=== PATIENT | female | born 1990 | race Two or more races ===

== ENCOUNTER 2017-11-16 14:26 | Emergency (ER) | payer BC, MEDICAID ==
[~2017-11-16] VITALS: Ht 152.4 cm; Wt 90.7 kg
[2017-11-16] MEDS ORDERED: TDAP DIPH,PERTUSS,TET VAC/PF 0.5 ML DISP.SYRIN IM ONE ×2 (15:00→15:05)
--- NOTE | 2017-11-16 16:21 | NUR ---
MSE COMPLETED, ACI/RX X1 GIVEN, LACERATION SITE WAS CLEANED AND DREASED WITH NON-ADHIRING DRESSING, COLLI SPLINT PLACED TO LEFT HAND/WRIST.
[2017-11-16 16:22] VITALS: BP 120/78
== END 2017-11-16 16:24 | disposition home or self-care (01) ==
LOC: ER 14:31
DX: S61.412A Laceration without foreign body of left hand, initial encounter (principal); W25.XXXA Contact with sharp glass, initial encounter; Y93.89 Activity, other specified; Y92.89 Other specified places as the place of occurrence of the external cause; Y99.8 Other external cause status
CPT/HCPCS: 73130; 90715; A4217; A4663; J3490

== ENCOUNTER 2017-11-25 11:25 | Emergency (ER) | payer BC ==
[~2017-11-25] VITALS: Ht 154.9 cm; Wt 77.1 kg
--- NOTE | 2017-11-25 11:32 | NUR ---
at bedside to see and examine patient.
--- NOTE | 2017-11-25 11:36 | NUR ---
Stitches to left hand removed as ordered. dcd instructions provided and pt. verbalized understanding.
== END 2017-11-25 11:44 | disposition home or self-care (01) ==
LOC: ER 11:25
DX: S61.412D Laceration without foreign body of left hand, subsequent encounter (principal); Z48.02 Encounter for removal of sutures; X58.XXXD Exposure to other specified factors, subsequent encounter
CPT/HCPCS: A4663

== ENCOUNTER 2019-02-01 04:02 | Emergency (ER) | payer BC, MEDICAID, OTHER ==
[~2019-02-01] VITALS: Ht 154.9 cm; Wt 108.9 kg
[2019-02-01] MEDS ORDERED: LITH300T3 PO (04:08)
[2019-02-01] MEDS ORDERED: ARIP15TA3 PO (04:08)
[2019-02-01] MEDS ORDERED: KETOROLAC TROMETHAMINE 15 MG INJ IVP ONE (04:30)
[2019-02-01] MEDS ORDERED: HYDROMORPHONE 2 MG/1 ML DISP.SYRIN ONE (04:30)
[2019-02-01] MEDS ORDERED: ONDANSETRON 4 MG/2 ML VIAL ONE (04:30)
[2019-02-01] MEDS ORDERED: ONDANSETRON 4 MG/2 ML VIAL IV ONE (04:30)
[2019-02-01] MEDS ORDERED: HYDROMORPHONE 1 MG/1 ML DISP.SYRIN IV ONE (04:30)
[2019-02-01] MEDS ORDERED: KETOROLAC TROMETHAMINE 30 MG INJ ONE (04:37)
--- NOTE | 2019-02-01 04:42 | NUR ---
Pt is resting in bed. Labs drawn, sent to lab. Meds administered. Pending ultrasound. Pt's partner at bedside. No acute distress noted.
[2019-02-01 04:53] LABS: BASOPHILS # (AUTO) 0.1 K/uL (0.0-8.0); BASOPHILS % (AUTO) 0.7 % (0.0-2.0); EOSINOPHILS # (AUTO) 0.2 K/uL (0.0-0.7); EOSINOPHILS % (AUTO) 1.5 % (0.0-7.0); HEMATOCRIT 44.5 % (31.2-41.9); HEMOGLOBIN 14.9 g/dL (10.9-14.3); LYMPHOCYTES # (AUTO) 4.8 K/uL (20.0-40.0); LYMPHOCYTES % (AUTO) 33.9 % (20.5-51.5); MEAN CORPUSCULAR HEMOGLOBIN 29.5 uug (24.7-32.8); MEAN CORPUSCULAR HGB CONC 33 g/dL (32.3-35.6); MEAN CORPUSCULAR VOLUME 88.4 fL (75.5-95.3); MONOCYTES # (AUTO) 0.5 K/uL (2.0-10.0); MONOCYTES % (AUTO) 3.7 % (0.0-11.0); NEUTROPHILS # (AUTO) 8.5 K/uL (1.8-8.9); NEUTROPHILS % (AUTO) 60.2 % (38.5-71.5); PLATELET COUNT (AUTO) 339 K/uL (179-408); RED BLOOD CELL COUNT(AUTO) 5.04 MIL/uL (3.63-4.92); WHITE BLOOD COUNT (AUTO) 14.2 K/uL (3.8-11.8)
[2019-02-01 04:57] LABS: BILIRUBIN,DIRECT 0.2 mg/dL (0.0-0.2); BILIRUBIN,TOTAL 0.6 mg/dL (0.2-1.0); CREATININE 0.7 mg/dL (0.6-1.3); POTASSIUM 3.8 mmol/L (3.5-5.1); TOTAL PROTEIN, SERUM 7.8 g/dL (6.4-8.2)
--- NOTE | 2019-02-01 05:14 | NUR ---
Ultrasound at bedside.
--- NOTE | 2019-02-01 05:40 | NUR ---
Patient transported to CT in stable condition.
--- NOTE | 2019-02-01 05:58 | NUR ---
Patient transported back from Radiology in stable condition.
--- NOTE | 2019-02-01 06:37 | NUR ---
Patient discharged to home in stable conditon. Written and verbal after care instructions given. Patient verbalizes understanding of instructions. Patient ambulated with stable gait. Instructed patient that she may not be able to drive, her partner will be driving her home.
[2019-02-01 06:39] VITALS: BP 149/85
== END 2019-02-01 06:39 | disposition home or self-care (01) ==
LOC: ER 04:02
DX: R10.11 Right upper quadrant pain (principal); R11.2 Nausea with vomiting, unspecified; F31.9 Bipolar disorder, unspecified; Z79.899 Other long term (current) drug therapy
CPT/HCPCS: 36415; 74176; 76705; 80048; 80076; 83690; 85025; 96374; 96375; 99284; J1170; J1885; J2405; A4663; J7030

== ENCOUNTER 2019-03-26 14:24 | Emergency (ER) | payer BC ==
[~2019-03-26] VITALS: Ht 154.9 cm; Wt 104.3 kg
[~2019-03-26 14:24] MED LIST: ARIP15TA3 PO; LITH300T3 PO
[2019-03-26] MEDS ORDERED: MORPHINE SULFATE 4 MG/1 ML DISP.SYRIN IV ONE (15:00)
[2019-03-26] MEDS ORDERED: ONDANSETRON 4 MG/2 ML VIAL IV ONE ×2 (15:00→16:00)
[2019-03-26] MEDS ORDERED: IV NORMAL SALINE 1000 ML BAG IV ONE (15:00)
[2019-03-26 15:08] LABS: BASOPHILS # (AUTO) 0.1 K/uL (0.0-8.0); BASOPHILS % (AUTO) 0.7 % (0.0-2.0); EOSINOPHILS # (AUTO) 0.2 K/uL (0.0-0.7); EOSINOPHILS % (AUTO) 1.3 % (0.0-7.0); HEMATOCRIT 45.6 % (31.2-41.9); HEMOGLOBIN 15.4 g/dL (10.9-14.3); LYMPHOCYTES # (AUTO) 4.1 K/uL (20.0-40.0); MEAN CORPUSCULAR HEMOGLOBIN 29.9 uug (24.7-32.8); MEAN CORPUSCULAR HGB CONC 34 g/dL (32.3-35.6); MEAN CORPUSCULAR VOLUME 88.5 fL (75.5-95.3); MONOCYTES # (AUTO) 0.5 K/uL (2.0-10.0); MONOCYTES % (AUTO) 3.3 % (0.0-11.0); NEUTROPHILS # (AUTO) 9.3 K/uL (1.8-8.9); NEUTROPHILS % (AUTO) 65.7 % (38.5-71.5); PLATELET COUNT (AUTO) 314 K/uL (179-408); RED BLOOD CELL COUNT(AUTO) 5.15 MIL/uL (3.63-4.92); WHITE BLOOD COUNT (AUTO) 14.2 K/uL (3.8-11.8)
[2019-03-26] MEDS ORDERED: ONDANSETRON 4 MG/2 ML VIAL ONE ×2 (15:08→15:49)
[2019-03-26] MEDS ORDERED: MORPHINE SULFATE 4 MG/1 ML DISP.SYRIN ONE (15:08)
[2019-03-26 15:16] LABS: CREATININE 0.7 mg/dL (0.6-1.3); POTASSIUM 3.7 mmol/L (3.5-5.1)
--- NOTE | 2019-03-26 15:19 | NUR ---
PT IS IN ROOM #2A. DR ESCALONA EVALUATED THE PT.
[2019-03-26 15:22] LABS: BILIRUBIN,DIRECT 0.1 mg/dL (0.0-0.2); BILIRUBIN,TOTAL 0.7 mg/dL (0.2-1.0); TOTAL PROTEIN, SERUM 8.1 g/dL (6.4-8.2)
[2019-03-26] MEDS ORDERED: MORPHINE SULFATE 2 MG/1 ML DISP.SYRIN ONE (16:06)
[2019-03-26] MEDS ORDERED: MORPHINE SULFATE 2 MG/1 ML DISP.SYRIN IV ONE (16:15)
--- NOTE | 2019-03-26 16:18 | NUR ---
PT WAS D/C'd TO HOME. D/C INSTRUCTIONS GIVEN TO THE PT.
[2019-03-26 16:19] VITALS: BP 135/75
[2019-03-26 16:19] LABS: *BILIRUBIN,URIN NEGATIVE (NEGATIVE); *CLARITY,URINE SLIGHTLY CLOUDY (CLEAR); *COLOR,URINE YELLOW (YELLOW); *KETONES,URINE 1+ (NEGATIVE); *URINE HCG, QUAL NEGATIVE (NEGATIVE); *UROBILINOGEN,URINE 0.2 E.U./dl (NORMAL); LEUKOCYTE ESTERASE ,URINE 1+ (NEGATIVE); NITRITE, URINE NEGATIVE (NEGATIVE); UGLUCOSE NEGATIVE (NEGATIVE)
[2019-03-26 16:24] LABS: *BLOOD, URINE TRACE (NEGATIVE)
[2019-03-26 16:26] LABS: BACTERIA,URINE FEW /HPF (NONE SEEN); MUCUS,URINE FEW /LPF (0-FEW); SQUAMOUS EPITHELIAL CELL,UR MODERATE /HPF (NONE SEEN)
== END 2019-03-26 16:20 | disposition home or self-care (01) ==
LOC: ER 14:24
DX: K80.20 Calculus of gallbladder without cholecystitis without obstruction (principal); F31.9 Bipolar disorder, unspecified; Z79.899 Other long term (current) drug therapy
CPT/HCPCS: 36415; 80048; 80076; 81000; 81001; 83690; 84703; 85025; 87086; 96361; 96374; 96375; 96376; 99283; J2270 ×2; J2405 ×2; A4663; J7030

== ENCOUNTER 2019-05-26 10:00 | Emergency (ER) | payer BC ==
[~2019-05-26] VITALS: Ht 154.9 cm; Wt 104.3 kg
--- NOTE | 2019-05-26 10:17 | NUR ---
JATINDER RIBEIRO at bedside for MSE.
[2019-05-26 10:30] LABS: BASOPHILS % (AUTO) 0.3 % (0.0-2.0); EOSINOPHILS % (AUTO) 0.1 % (0.0-7.0); HEMOGLOBIN 15.3 g/dL (10.9-14.3); LYMPHOCYTES # (AUTO) 1.9 K/uL (20.0-40.0); LYMPHOCYTES % (AUTO) 13.4 % (20.5-51.5); MEAN CORPUSCULAR HEMOGLOBIN 30.6 uug (24.7-32.8); MEAN CORPUSCULAR HGB CONC 33 g/dL (32.3-35.6); MEAN CORPUSCULAR VOLUME 91.7 fL (75.5-95.3); MONOCYTES # (AUTO) 0.4 K/uL (2.0-10.0); MONOCYTES % (AUTO) 2.8 % (0.0-11.0); NEUTROPHILS # (AUTO) 11.7 K/uL (1.8-8.9); NEUTROPHILS % (AUTO) 83.4 % (38.5-71.5); PLATELET COUNT (AUTO) 281 K/uL (179-408); RED BLOOD CELL COUNT(AUTO) 5.02 MIL/uL (3.63-4.92)
[2019-05-26] MEDS ORDERED: IV NORMAL SALINE 500 ML BAG IV ONE (10:30)
[2019-05-26] MEDS ORDERED: HYDROMORPHONE 1 MG/1 ML DISP.SYRIN IV ONE ×3 (10:30→13:45)
[2019-05-26] MEDS ORDERED: ONDANSETRON 4 MG/2 ML VIAL IV ONE (10:30)
[2019-05-26] MEDS ORDERED: ONDANSETRON 4 MG/2 ML VIAL ONE (10:32)
[2019-05-26] MEDS ORDERED: HYDROMORPHONE 1 MG/1 ML DISP.SYRIN ONE ×3 (10:32→13:44)
[2019-05-26 10:33] LABS: *BILIRUBIN,URIN 1+ (NEGATIVE); *CLARITY,URINE CLEAR (CLEAR); *COLOR,URINE YELLOW (YELLOW); *KETONES,URINE 2+ (NEGATIVE); *UROBILINOGEN,URINE 0.2 E.U./dl (NORMAL); LEUKOCYTE ESTERASE ,URINE TRACE (NEGATIVE); NITRITE, URINE NEGATIVE (NEGATIVE); PH,URINE 5.5 (5.0-8.0); UGLUCOSE 2+ (NEGATIVE)
[2019-05-26 10:34] LABS: *BLOOD, URINE TRACE INTACT (NEGATIVE); *URINE HCG, QUAL NEGATIVE (NEGATIVE)
[2019-05-26 10:42] LABS: SQUAMOUS EPITHELIAL CELL,UR FEW /HPF (NONE SEEN)
[2019-05-26 10:43] LABS: CREATININE 0.9 mg/dL (0.6-1.3); POTASSIUM 4.2 mmol/L (3.5-5.1)
[2019-05-26 10:43] LABS: BACTERIA,URINE FEW /HPF (NONE SEEN); RBC,URINE 0-3 /HPF (0-3); WBC,URINE 0-3 /HPF (0-3)
[2019-05-26 10:49] LABS: BILIRUBIN,TOTAL 4.2 mg/dL (0.2-1.0); TOTAL PROTEIN, SERUM 8.2 g/dL (6.4-8.2)
[2019-05-26] MEDS ORDERED: CEFTRIAXONE 1 G VIAL IM ONE (11:00)
[2019-05-26] MEDS ORDERED: LIDOCAINE HCL 1% 20 ML VIAL ONE (11:07)
[2019-05-26] MEDS ORDERED: CEFTRIAXONE 1 G VIAL ONE (11:07)
--- NOTE | 2019-05-26 11:41 | NUR ---
PT has been accepted by Dr. Simeon at [facility]. JATINDER RIBEIRO spoke w/ Dr. Simeon re pt's transfer.
--- NOTE | 2019-05-26 14:57 | NUR ---
called [facility] re pt's transfer to [facility] - spoke hollis Garner, the transfer community representative.
--- NOTE | 2019-05-26 15:05 | NUR ---
Case management received a fax from Caleb Laboy (case manger) from [employer] P:[phone] F:[phone] requesting: completion of concurrent review by phone/fax for each in-patient day, submission of clinical information and fax is charge orders to [employer] @ [phone] by #PM and prior to patient's discharge. A call was placed to Caleb @ [phone] and informed her that this patient is still currently in the ER and has not yet been assigned to a room as an inpatient. Per Caleb: she wanted a verbal update on the patient's condition. This psychologist [employer] provided Caleb with the patient's current labs results and US gallbladder results. 1516pm Received a call from Caleb who stated that this patient will be transferred to [facility].
--- NOTE | 2019-05-26 15:55 | NUR ---
spoke w/ Danny from [facility]. Pt will be transferred to [facility] Room 2242. Call [phone] for report. Pt has been accepted by Dr. Simeon. Ambulance authorization #[id number]
[2019-05-26 16:00] LABS: BASOPHILS # (AUTO) 0.1 K/uL (0.0-8.0); BASOPHILS % (AUTO) 0.5 % (0.0-2.0); EOSINOPHILS % (AUTO) 0.2 % (0.0-7.0); HEMATOCRIT 47.8 % (31.2-41.9); HEMOGLOBIN 15.8 g/dL (10.9-14.3); LYMPHOCYTES # (AUTO) 2.2 K/uL (20.0-40.0); LYMPHOCYTES % (AUTO) 10.5 % (20.5-51.5); MEAN CORPUSCULAR HEMOGLOBIN 30.5 uug (24.7-32.8); MEAN CORPUSCULAR HGB CONC 33 g/dL (32.3-35.6); MEAN CORPUSCULAR VOLUME 92.2 fL (75.5-95.3); MONOCYTES # (AUTO) 0.4 K/uL (2.0-10.0); MONOCYTES % (AUTO) 2.2 % (0.0-11.0); NEUTROPHILS # (AUTO) 17.9 K/uL (1.8-8.9); NEUTROPHILS % (AUTO) 86.6 % (38.5-71.5); PLATELET COUNT (AUTO) 328 K/uL (179-408); RED BLOOD CELL COUNT(AUTO) 5.19 MIL/uL (3.63-4.92); WHITE BLOOD COUNT (AUTO) 20.6 K/uL (3.8-11.8)
[2019-05-26] MEDS ORDERED: KETOROLAC TROMETHAMINE 30 MG INJ IVP ONE (16:00)
[2019-05-26] MEDS ORDERED: KETOROLAC TROMETHAMINE 30 MG INJ ONE (16:06)
--- NOTE | 2019-05-26 16:06 | NUR ---
Called [facility], spoke w/ Pravin. ETA [id number], Trip #[id number]
[2019-05-26 16:16] LABS: CREATININE 0.8 mg/dL (0.6-1.3); POTASSIUM 4.2 mmol/L (3.5-5.1)
[2019-05-26 16:23] LABS: BILIRUBIN,DIRECT 2.8 mg/dL (0.0-0.2); TOTAL PROTEIN, SERUM 8.1 g/dL (6.4-8.2)
[2019-05-26] MEDS ORDERED: PIPERACILLIN SODIUM/TAZOBACTAM 3.375 G in IV DEXTROSE 5% 50 ML IV ONE (16:30)
[2019-05-26] MEDS ORDERED: IV NORMAL SALINE 1000 ML BAG IV ONE (16:30)
[2019-05-26] MEDS ORDERED: PIPERACILLIN/TAZOBACTAM/D5W 50 ML IV ONE (16:43)
--- NOTE | 2019-05-26 17:27 | NUR ---
transfer report given to Wang LOFTON.
--- NOTE | 2019-05-26 18:19 | NUR ---
Pt will be transferred to [facility] via [facility], private ambulance, [id number].
--- NOTE | 2019-05-26 18:32 | NUR ---
Patient Tranfers to outside Facility Physician: Dr. Simeon Location: [facility]
== END 2019-05-26 18:34 | disposition short-term general hospital (02) ==
LOC: ER 10:00
DX: K85.10 Biliary acute pancreatitis without necrosis or infection (principal); Z79.899 Other long term (current) drug therapy
CPT/HCPCS: 36415; 76705; 80048 ×2; 80076 ×2; 81000; 81001; 83690 ×2; 84703; 85025 ×2; 96361; 96372; 96374; 96375; 96376; 99285; J0696; J1170 ×3; J1885; J2405; J2543; J3490; J7030; J7040